=== PATIENT | female | born 1975 | race Caucasian/White ===

== ENCOUNTER 2018-09-30 06:54 | Emergency (ER) | payer SELFPAY, MEDICAID ==
[2018-09-30] MEDS: ONDANSETRON (ODT) 4 MG TAB ODT (07:35)
[2018-09-30] MEDS: HYDROCODONE/APAP (5/325) TAB PO (07:35)
== END 2018-09-30 08:26 | disposition home or self-care (01) ==
LOC: FTE 08:26
DX: M54.2 Cervicalgia (principal); M79.605 Pain in left leg
CPT/HCPCS: 99283

== ENCOUNTER 2018-10-21 17:58 | Emergency (ER) | payer MEDICAID ==
[2018-10-21] MEDS: KETOROLAC 30 MG INJ IM (19:48)
== END 2018-10-21 21:10 | disposition home or self-care (01) ==
LOC: FTE 17:58
DX: M25.512 Pain in left shoulder (principal); M54.12 Radiculopathy, cervical region
CPT/HCPCS: 72125; 81025; 96372; 99285-25